=== PATIENT | male | born 1955 | race Caucasian/White ===

== ENCOUNTER 2017-05-20 05:17 | Inpatient (IN) | payer BC ==
[2017-05-20] VITALS (23 sets, daily range): BP systolic 108–140; BP diastolic 60–79; PULSE 55–82; RESP 11–20; Ht 182.9 cm; Wt 104.9 kg
[~2017-05-20] VITALS: Ht 182.9 cm; Wt 104.9 kg
[~2017-05-20 05:17] MED LIST: CEFAZOLIN 2 GM/50 ML (PMX) 50 ML IVPB ONE; LACTATED RINGER'S 1,000 ML IV* SCH
[2017-05-20] MEDS ORDERED: LISI10TA2 PO (05:55)
[2017-05-20] MEDS ORDERED: LACTATED RINGER'S 1,000 ML IV* SCH (06:30)
[2017-05-20] MEDS ORDERED: GELATIN SIZE 100 SPONGE ONE (06:39)
[2017-05-20] MEDS ORDERED: POLYMYXIN/BACITRACIN 1L IRRIG ONE (06:39)
[2017-05-20] MEDS ORDERED: THROMBIN 5000 UNIT VIAL ONE (06:39)
[2017-05-20] MEDS ORDERED: BUPIVACAINE 0.25% (MPF) 10 ML 10 ML VIAL ONE (06:39)
--- NOTE | 2017-05-20 06:47 | HPN ---
Date/Time of Note Date/Time of Note DATE: 05/20/17 TIME: 06:46 Interval H&P Admission Note Pt. seen H&P reviewed: No system changes CHRISTOPHER WATKINS MD May 20, 2017 06:46
[2017-05-20] MEDS ORDERED: NEOSTIGMINE 3 MG/3 ML SYRINGE ONE ×2 (06:49→07:40)
[2017-05-20] MEDS ORDERED: ROCURONIUM 50 MG INJ ONE ×2 (06:49→07:40)
[2017-05-20] MEDS ORDERED: MEPERIDINE 100 MG INJ ONE (06:49)
[2017-05-20] MEDS ORDERED: LIDOCAINE 2% (SDV) 5 ML INJ ONE (06:49)
[2017-05-20] MEDS ORDERED: PROPOFOL 20 ML ONE (06:49)
[2017-05-20] MEDS ORDERED: GLYCOPYRROLATE 0.4 MG INJ ONE ×3 (06:49→07:40)
[2017-05-20] MEDS ORDERED: SUCCINYLCHOLINE CHLORIDE 100 MG/5 ML SYG IV ONE (06:49)
[2017-05-20] MEDS ORDERED: LABETALOL HCL 20MG INJ ONE (07:30)
--- NOTE | 2017-05-20 07:49 | RADRPT ---
PROCEDURE: XR Lumbar Spine one view. CLINICAL INDICATION: Low back pain. Intraoperative. TECHNIQUE: Prone portable cross-table lateral. COMPARISON: No prior studies are available for comparison. FINDINGS: For the purposes of this report, the last apparent true disc level is considered to be L5-S1. Based on this, the posterior surgical instruments are present overlying the L2, L3, and L4 spinous proces ses. IMPRESSION: 1. Intraoperative imaging as described above. Call report: A call report of the findings was made to Dr. Ingram on 05/20/2017 at 0749 hours. RPTAT: QQ .Tone Jaramillo MD, MD Date Time Electronically viewed and signed by .Tone Jaramillo MD, MD on 05/20/2017 07:49 .R/
--- NOTE | 2017-05-20 07:57 | RADRPT ---
PROCEDURE: XR Lumbar Spine one view. CLINICAL INDICATION: Low back pain. Intraoperative. TECHNIQUE: Prone portable cross-table lateral. COMPARISON: No prior studies are available for comparison. FINDINGS: For the purposes of this report, the last apparent true disc level is considered to be L5-S1. Based on this, the posterior needle markers are present overlying the L2-3 disk level and the L5 spinous process level. IMPRESSION: 1. Intraoperative imaging as described above. RPTAT: QQ .Tone Jaramillo MD, Date Time Electronically viewed and signed by .Tone Jaramillo MD, on 05/20/2017 07:57 .R/
[2017-05-20] MEDS ORDERED: ONDANSETRON 4 MG INJ ONE (09:07)
[2017-05-20] MEDS ORDERED: hydrALAzine 20 MG INJ IV PRN (09:30)
[2017-05-20] MEDS ORDERED: FENTAnyl 50 MCG/ML VIAL IV PRN ×3 (09:30)
[2017-05-20] MEDS ORDERED: ONDANSETRON 4 MG INJ IV PRN ×2 (09:30→10:00)
[2017-05-20] MEDS ORDERED: MEPERIDINE 25 MG INJ IV PRN (09:30)
[2017-05-20] MEDS ORDERED: LABETALOL HCL 20MG INJ IV PRN (09:30)
[2017-05-20] MEDS ORDERED: OXYCODONE/ACETAMINOPHEN (5/325) TAB PO PRN ×2 (09:30)
[2017-05-20] MEDS ORDERED: MIDAZOLAM 1 MG/ML 2 ML INJ IV PRN (09:30)
[2017-05-20] MEDS ORDERED: EPHEDrine SULFATE 50 MG/5 ML SYG IV PRN (09:30)
[2017-05-20] MEDS ORDERED: morphine (1 MG/ML) 10ML SYRINGE IV PRN ×3 (09:30)
[2017-05-20] MEDS ORDERED: DIPHENHYDRAMINE 50 MG INJ IV PRN (09:30)
[2017-05-20] MEDS ORDERED: METOCLOPRAMIDE 10 MG INJ IV PRN (09:30)
[2017-05-20] MEDS ORDERED: HYDROmorphONE (0.2 MG/ML) 10ML SYG IV PRN ×3 (09:30)
--- NOTE | 2017-05-20 09:56 | OPR ---
Date/Time of Note Date/Time of Note DATE: 05/20/17 TIME: 09:53 Operative Report Preoperative Diagnosis Lumbar spinal stenosis at L2, L3 and L4 Postoperative Diagnosis Same Operation/Procedure Performed Central decompressive laminectomy at L2 Central decompressive laminectomy at L3 Central decompressive laminectomy at L4 Medial facetectomy and foraminotomy L2-3 L3-4 L4-5 bilaterally Cosmetic wound closure (14 cm) Lateral localizing lumbar radiographs (2) Intraoperative nerve monitoring (3 hours) Surgeon: CHRISTOPHER WATKINS MD library serials assistant: KSENIA LUNA Anesthesia: general Estimated Blood Loss: 100 - 150 ml's Specimens Spinous process of L2-L3 and L4 Grafts/Implants None Complications: None CHRISTOPHER WATKINS MD May 20, 2017 09:56
[2017-05-20] MEDS ORDERED: TRIMETHOBENZAMIDE 100 MG/ML VIAL IM PRN (10:00)
[2017-05-20] MEDS ORDERED: DIPHENHYDRAMINE 50 MG CAP PO PRN (10:00)
[2017-05-20] MEDS ORDERED: DIAZEPAM 5 MG/ML SYG IM PRN (10:00)
[2017-05-20] MEDS ORDERED: AL HYDROX/MG HYDROX/SIMETH 30 ML CUP PO PRN (10:00)
[2017-05-20] MEDS ORDERED: ACETAMINOPHEN 325 MG TAB PO PRN (10:00)
[2017-05-20] MEDS ORDERED: HYDROCODONE/APAP (5/325) TAB PO PRN (10:00)
[2017-05-20] MEDS ORDERED: ZOLPIDEM 5 MG TAB PO PRN (10:00)
[2017-05-20] MEDS ORDERED: BETHANECHOL 25 MG TAB PO PRN (10:00)
[2017-05-20] MEDS ORDERED: DIAZEPAM 5 MG TAB PO PRN (10:00)
[2017-05-20] MEDS ORDERED: NACL 0.9% 3 ML SYG IV SCH (10:00)
[2017-05-20] MEDS ORDERED: PROCHLORPERAZINE 10 MG TAB PO PRN (10:00)
[2017-05-20] MEDS ORDERED: NALOXONE (0.4 MG/ML) INJ IV PRN (10:00)
[2017-05-20] MEDS ORDERED: CEPASTAT LOZENGE MT PRN (10:00)
[2017-05-20] MEDS: HYDROmorphONE 0.2 MG/ML PCA IV SCH ×2 (10:12→19:02)
[2017-05-20] MEDS: CEFAZOLIN 1 GM/50 ML (PMX) 50 ML IVPB SCH ×2 (13:12→18:15)
[2017-05-20] MEDS: DEXTROSE 5%-0.45% NACL 1,000 ML IV SCH ×2 (13:12→20:15)
--- NOTE | 2017-05-20 16:29 | CONS ---
Date/Time of Note Date/Time of Note DATE: 05/20/17 TIME: 16:20 Assessment/Plan Assessment/Plan Additional Assessment/Plan will foloow with you ---thank you gold Consultation Date/Type/Reason Admit Date/Time May 20, 2017 at 05:17 Date of Consultation: May 20, 2017 Type of Consultation: internal medeicine Reason for Consultation medical f/u post-op Referring Provider: CHRISTOPHER WATKINS MD Hx of Present Illness post-op lumbar spine surgery for lumbar stenosis. no specific complaints other than prior back pain- significant past medical history surgey for removal of a melanoma and treatment for hypertension Social History Smoking Status: Never smoker Exam/Review of Systems Vital Signs Vitals Vital Signs Date Time Temp Pulse Resp B/P Pulse Ox O2 Delivery O2 Flow Rate FiO2 05/20/17 13:00 20 05/20/17 11:06 97.6 59 126/77 93 05/20/17 10:45 Nasal Cannula 05/20/17 10:23 2.0 Exam Constitutional: alert, oriented, well developed Psych: nl mood/affect, no complaints Head: atraumatic Eyes: nl conjunctiva ENMT: nl external ears & nose Neck: supple Respiratory: clear to auscultation Cardiovascular: regular rate and rhythm Gastrointestinal: soft Results stable post op back surgery out of bed today with pt Medications Medications Current Medications Lactated Ringer's 1,000 ml @ 0 mls/hr Q0M IV* Last administered on 05/20/17 06:46; Admin Dose 30 MLS/HR; Start 05/20/17 at 05:00; Stop 05/20/17 at 19:00 Lactated Ringer's 1,000 ml @ 20 mls/hr Q24H IV* Last administered on 06:46; Admin Dose 20 MLS/HR; Start 05/20/17 at 06:30; Stop 05/20/17 at 19: 00 Dextrose/Sodium Chloride (D5-1/2ns) 1,000 ml @ 100 mls/hr Q10H IV Last administered on 05/20/17 13:12; Admin Dose 100 MLS/HR; Start 05/20/17 at 09:49 Acetaminophen/ Hydrocodone Bitart ([place] (5/325)) 1 tab Q4H PRN PO PAIN LEVEL 1 -5; Start 05/20/17 at 10:00; Status Future Hold Acetaminophen/ Hydrocodone Bitart 2 tab 2 tab Q4H PRN PO PAIN LEVEL 6-10; Start 05/20/17 at 10:00; Status Future Hold Cefazolin Sodium (Ancef 1 Gm/50 ml (Pmx)) 50 ml @ 100 mls/hr Q6 IVPB Last administered on 05/20/17t 13:12; Admin Dose 100 MLS/HR; Start 05/20/17 at 12:00 ; Stop 05/21/17 at 06:29 Zolpidem Tartrate (Ambien) 5 mg HS PRN PO INSOMNIA; Start 05/20/17 at 10:00 Prochlorperazine (Compazine) 10 mg Q4H PRN PO NAUSEA AND/OR VOMITING; Start 08/27 at 10:00 Trimethobenzamide HCl (Tigan) 200 mg Q4H PRN IM NAUSEA AND/OR VOMITING; Start 05/20/17 at 10:00 Ondansetron HCl (Zofran Inj) 4 mg Q6H PRN IV NAUSEA AND/OR VOMITING; Start 08/27 at 10:00 Al Hydrox/Mg Hydrox/Simethicone (Mag-Al Plus) 15 ml Q4H PRN PO CONSTIPATION; Start 05/20/17 at 10:00 Docusate Sodium (Colace) 100 mg BID PO ; Start 05/21/17 at 09:00 Acetaminophen (Tylenol Tab) 650 mg Q4H PRN PO TEMP GREATER THAN 101F OR JUAN; Start 05/20/17 at 10:00 Ascorbic Acid (Vitamin C) 1,000 mg BID PO ; Start 05/21/17 at 09:00 Ferrous Sulfate (Ferrous Sulfate (Ec)) 325 mg TID PO ; Start 05/21/17 at 09:00 Ranitidine HCl (Zantac) 150 mg BID PO ; Start 05/20/17 at 21:00 Diazepam (Valium) 5 mg Q4H PRN PO MUSCLE SPASMS; Start 05/20/17 at 10:00 Diazepam (Valium) 5 mg Q4H PRN IM MUSCLE SPASMS; Start 05/20/17 at 10:00 Phenol (Cepastat Lozenge) 1 lozenge PRN PRN MT SORE THROAT; Start 7/10/17 at 10:00 Bethanechol Chloride (Urecholine) 25 mg PRN PRN PO UNABLE TO VOID; Start at 10:00 Diphenhydramine HCl (Benadryl) 50 mg Q6H PRN PO PRURITUS; Start 05/20/17 at 10: 00 Hydromorphone HCl (Dilaudid VEGETABLE FARMING SUPERVISOR) Q4PCA IV Last administered on 05/20/17t 10:12 ; Admin Dose 6 MG; Start 05/20/17 at 10:00 Naloxone HCl (Narcan) 0.2 mg Q2M PRN IV RR 8 BREATHS/MIN OR LESS; Start at 10:00 BETTY DUKE MD May 20, 2017 16:29
[2017-05-20] MEDS: RANITIDINE 150 MG TAB PO SCH (20:15)
[2017-05-21] MEDS: CEFAZOLIN 1 GM/50 ML (PMX) 50 ML IVPB SCH ×2 (00:17→05:19)
[2017-05-21 00:35] VITALS: BP 116/56; RESP 20
[2017-05-21 05:20] LABS: HEMATOCRIT 39.1 % (42.0-52.0); HEMOGLOBIN 12.5 g/dl (14.0-18.0)
[2017-05-21] MEDS: DEXTROSE 5%-0.45% NACL 1,000 ML IV SCH ×2 (05:20→15:49)
[2017-05-21 05:32] LABS: CALCIUM 8.6 mg/dl (8.4-10.2); CREATININE 0.85 mg/dl (0.61-1.24); POTASSIUM 4.7 mmol/L (3.5-5.1)
--- NOTE | 2017-05-21 07:10 | PN ---
Date/Time of Note Date/Time of Note DATE: 05/21/17 TIME: 07:09 Assessment/Plan Lines/Catheters IV Catheter Type (from Nrs): Saline Lock Berger in Place (from Nrs): Yes Subjective 24 Hr Interval Summary The patient is postop day #1 following a 3 level decompressive laminectomy at L2 -L3 and L4. He is resting comfortably in bed. Neurovascular structures are intact distally. A.m. lab work is unremarkable. His Hemovac had 250 cc of output since surgery and was left in place. I will check the output at noon. He will be mobilized as tolerated by physical therapy. Exam/Review of Systems Vital Signs Vitals Vital Signs Date Time Temp Pulse Resp B/P Pulse Ox O2 Delivery O2 Flow Rate FiO2 05/21/17 05:00 18 05/21/17 00:35 98.9 72 116/56 99 05/20/17 14:20 Nasal Cannula 2.0 Intake and Output 05/20/17 05/20/17 05/21/17 15:00 23:00 07:00 Intake Total 3450 ml 1070 ml 800 ml Output Total 495 ml 600 ml 2000 ml Balance 2955 ml 470 ml -1200 ml Results Result Diagram: 05/21/17 0428 05/21/17 0428 CHRISTOPHER WATKINS MD May 21, 2017 07:10
[2017-05-21 08:00] VITALS: BP 126/62; RESP 18
[2017-05-21] MEDS ORDERED: BETHANECHOL 25 MG TAB PO PRN (08:00)
--- NOTE | 2017-05-21 08:16 | CONS ---
Date/Time of Note Date/Time of Note DATE: 05/21/17 TIME: 08:09 Assessment/Plan Assessment/Plan Chief Complaint/Hosp Course post-op lumbar spine surgery for lumbar stenosis. Problems: Additional Assessment/Plan medically stabcontinue current medications.dr tori adrian current complaintsle Consultation Date/Type/Reason Admit Date/Time May 20, 2017 at 05:17 Initial Consult Date 05/20/17 Type of Consultation: internal medeicine Reason for Consultation medical evaluation and manaqgent nguyễn medical problems Referring Provider: CHRISTOPHER WATKINS MD 24 HR Interval Summary Constitutional: other (complinin of right hand tingling and numbness in ulnar distribution--new onset) Detailed Summary Eyes: no complaints ENT: no complaints Gastrointestinal: no complaints Genitourinary: no complaints Musculoskeletal: back pain Skin: no complaints Exam/Review of Systems Vital Signs Vitals Vital Signs Date Time Temp Pulse Resp B/P Pulse Ox O2 Delivery O2 Flow Rate FiO2 05/21/17 05:00 18 05/21/17 00:35 98.9 72 116/56 99 05/20/17 14:20 Nasal Cannula 2.0 Intake and Output 05/20/17 05/20/17 05/21/17 15:00 23:00 07:00 Intake Total 3450 ml 1070 ml 800 ml Output Total 495 ml 600 ml 2000 ml Balance 2955 ml 470 ml -1200 ml Exam Constitutional: alert Respiratory: clear to auscultation Cardiovascular: regular rate and rhythm Gastrointestinal: soft Neurological: numbness (right h) Results Result Diagram: 05/21/17 0428 05/21/17 0428 Results 24 hrs Laboratory Tests Test 05/21/17 04:28 Hemoglobin 12.5 L Hematocrit 39.1 L Sodium Level 139 Potassium Level 4.7 Chloride Level 101 Carbon Dioxide Level 32 H Anion Gap 11 Blood Urea Nitrogen 11 Creatinine 0.85 Glucose Level 123 Calcium Level 8.6 Medications Medications Current Medications Dextrose/Sodium Chloride (D5-1/2ns) 1,000 ml @ 100 mls/hr Q10H IV Last administered on 05/21/17t 05:20; Admin Dose 100 MLS/HR; Start 05/20/17 at 09:49 Acetaminophen/ Hydrocodone Bitart ([place] (5/325)) 1 tab Q4H PRN PO PAIN LEVEL 1 -5; Start 05/20/17 at 10:00; Status Future Hold Acetaminophen/ Hydrocodone Bitart ([place] (5/325)) 2 tab Q4H PRN PO PAIN LEVEL 6 -10; Start 05/20/17 at 10:00; Status Future Hold Zolpidem Tartrate (Ambien) 5 mg HS PRN PO INSOMNIA; Start 05/20/17 at 10:00 Prochlorperazine (Compazine) 10 mg Q4H PRN PO NAUSEA AND/OR VOMITING; Start 08/27 at 10:00 Trimethobenzamide HCl (Tigan) 200 mg Q4H PRN IM NAUSEA AND/OR VOMITING; Start 05/20/17 at 10:00 Ondansetron HCl (Zofran Inj) 4 mg Q6H PRN IV NAUSEA AND/OR VOMITING; Start 08/27 at 10:00 Al Hydrox/Mg Hydrox/Simethicone (Mag-Al Plus) 15 ml Q4H PRN PO CONSTIPATION; Start 05/20/17 at 10:00 Docusate Sodium (Colace) 100 mg BID PO ; Start 05/21/17 at 09:00 Acetaminophen (Tylenol Tab) 650 mg Q4H PRN PO TEMP GREATER THAN 101F OR JUAN; Start 05/20/17 at 10:00 Ascorbic Acid (Vitamin C) 1,000 mg BID PO ; Start 05/21/17 at 09:00 Ferrous Sulfate (Ferrous Sulfate (Ec)) 325 mg TID PO ; Start 05/21/17 at 09:00 Ranitidine HCl (Zantac) 150 mg BID PO Last administered on 05/20/17 20:15; Admin Dose 150 MG; Start 05/20/17 at 21:00 Diazepam (Valium) 5 mg Q4H PRN PO MUSCLE SPASMS; Start 05/20/17 at 10:00 Diazepam (Valium) 5 mg Q4H PRN IM MUSCLE SPASMS; Start 05/20/17 at 10:00 Phenol (Cepastat Lozenge) 1 lozenge PRN PRN MT SORE THROAT Last administered on 05/20/17 20:15; Admin Dose 1 LOZENGE; Start 05/20/17 at 10:00 Bethanechol Chloride (Urecholine) 25 mg PRN PRN PO UNABLE TO VOID; Start at 10:00 Diphenhydramine HCl (Benadryl) 50 mg Q6H PRN PO PRURITUS; Start 05/20/17 at 10: 00 Hydromorphone HCl (Dilaudid PERFORMANCE TEST ENGINEER) Q4PCA IV Last administered on 05/20/17t 19:02 ; Admin Dose 6 MG; Start 05/20/17 at 10:00 Naloxone HCl (Narcan) 0.2 mg Q2M PRN IV RR 8 BREATHS/MIN OR LESS; Start at 10:00 Lisinopril (Zestril) 10 mg DAILY PO ; Start 05/21/17 at 09:00 Bethanechol Chloride (Urecholine) 25 mg PRN PRN PO UNABLE TO VOID; Start at 08:00 BETTY DUKE MD May 21, 2017 08:15
[2017-05-21] MEDS: FERROUS SULFATE (EC) 325 MG TAB PO SCH ×3 (09:05→20:30)
[2017-05-21] MEDS: ASCORBIC ACID 500 MG TAB PO SCH ×2 (09:05→20:29)
[2017-05-21] MEDS: DOCUSATE SODIUM 100 MG CAP PO SCH ×2 (09:06→20:30)
[2017-05-21] MEDS: LISINOPRIL 10 MG TAB PO SCH (09:06)
[2017-05-21] MEDS: RANITIDINE 150 MG TAB PO SCH ×2 (09:07→20:30)
[2017-05-21] MEDS: HYDROCODONE/APAP (5/325) TAB PO PRN ×4 (09:21→21:18)
[2017-05-21 13:48] LABS: ADD UMIC NO; UR ASCORBIC ACID NEGATIVE (NEGATIVE); UR BILIRUBIN (Dip) NEGATIVE (NEGATIVE); UR BLOOD (Dip) NEGATIVE (NEGATIVE); UR CLARITY CLEAR (CLEAR); UR COLOR YELLOW (YELLOW); UR GLUCOSE (Dip) NEGATIVE (NEGATIVE); UR KETONES (Dip) NEGATIVE (NEGATIVE); UR LEUKOCYTE ESTERASE (Dip) NEGATIVE Leu/ul (NEGATIVE); UR NITRITE (Dip) NEGATIVE (NEGATIVE); UR SPECIFIC GRAVITY (Dip) 1.015 (1.003-1.030); UR TOTAL PROTEIN (Dip) NEGATIVE (NEGATIVE); UR UROBILINOGEN (Dip) NEGATIVE (NEGATIVE)
[2017-05-21 19:40] VITALS: BP 100/57; RESP 20
[2017-05-22] MEDS: DEXTROSE 5%-0.45% NACL 1,000 ML IV SCH (01:49)
--- NOTE | 2017-05-22 07:40 | PN ---
Date/Time of Note Date/Time of Note DATE: 05/22/17 TIME: 07:38 Assessment/Plan Lines/Catheters IV Catheter Type (from Nrsg): Saline Lock Berger in Place (from Nrsg): No Subjective 24 Hr Interval Summary The patient is postop day #2 following a multilevel decompressive laminectomy. He is resting comfortably in bed. Neurovascular structures are intact distally. I anticipate he can be discharged later today upon clearance from physical therapy. He has been given strict discharge precautions and instructions as well as follow-up arrangements. Exam/Review of Systems Vital Signs Vitals Vital Signs Date Time Temp Pulse Resp B/P Pulse Ox O2 Delivery O2 Flow Rate FiO2 05/21/17 19:40 99.1 85 20 100/57 94 05/20/17 14:20 Nasal Cannula 2.0 Intake and Output 05/21/17 05/21/17 05/22/17 15:00 23:00 07:00 Intake Total 500 ml 700 ml 620 ml Output Total 30 ml 750 ml 900 ml Balance 470 ml -50 ml -280 ml Results Result Diagram: 05/21/17 0428 05/21/17 0428 CHRISTOPHER WATKINS MD May 22, 2017 07:40
[2017-05-22 08:00] VITALS: BP 112/58; RESP 18
--- NOTE | 2017-05-22 08:02 | CONS ---
Date/Time of Note Date/Time of Note DATE: 05/22/17 TIME: 07:59 Assessment/Plan Assessment/Plan Chief Complaint/Hosp Course post-op lumbar spine surgery for lumbar stenosis. Problems: Additional Assessment/Plan plan per medically stable at this [id number]---rtils you [facility] Consultation Date/Type/Reason Admit Date/Time May 20, 2017 at 05:17 Initial Consult Date 05/20/17 Type of Consultation: internal medeicine Referring Provider: CHRISTOPHER WATKINS MD 24 HR Interval Summary Constitutional: no complaints Exam/Review of Systems Vital Signs Vitals Vital Signs Date Time Temp Pulse Resp B/P Pulse Ox O2 Delivery O2 Flow Rate FiO2 05/21/17 19:40 99.1 85 20 100/57 94 05/20/17 14:20 Nasal Cannula 2.0 Intake and Output 05/21/17 05/21/17 05/22/17 15:00 23:00 07:00 Intake Total 500 ml 700 ml 620 ml Output Total 30 ml 750 ml 900 ml Balance 470 ml -50 ml -280 ml Exam Constitutional: alert Psych: no complaints ENMT: nl external ears & nose Respiratory: clear to auscultation Cardiovascular: regular rate and rhythm Gastrointestinal: soft Results Result Diagram: 05/21/17 0428 05/21/17 0428 Results 24 hrs Laboratory Tests Test 05/21/17 09:11 Urine Color YELLOW Urine Clarity CLEAR Urine pH 5.0 Urine Specific [place] 1.015 Urine Ketones NEGATIVE Urine Nitrite NEGATIVE Urine Bilirubin NEGATIVE Urine Urobilinogen NEGATIVE Urine Leukocyte Esterase NEGATIVE Urine Hemoglobin NEGATIVE Urine Glucose NEGATIVE Urine Total Protein NEGATIVE Medications Medications Current Medications Dextrose/Sodium Chloride (D5-1/2ns) 1,000 ml @ 100 mls/hr Q10H IV Last administered on 05/21/17 05:20; Admin Dose 100 MLS/HR; Start 05/20/17 at 09:49 Acetaminophen/ Hydrocodone Bitart ([place] (5/325)) 1 tab Q4H PRN PO PAIN LEVEL 1 -5; Start 05/20/17 at 10:00; Status Future hold Acetaminophen/ Hydrocodone Bitart ([place] (5/325)) 2 tab Q4H PRN PO PAIN LEVEL 6 -10 Last administered on 05/21/17 21:18; Admin Dose 2 TAB; Start 05/20/17 at 10 :00; Status Future hold Zolpidem Tartrate (Ambien) 5 mg HS PRN PO INSOMNIA; Start 05/20/17 at 10:00 Prochlorperazine (Compazine) 10 mg Q4H PRN PO NAUSEA AND/OR VOMITING; Start 08/27 at 10:00 Trimethobenzamide HCl (Tigan) 200 mg Q4H PRN IM NAUSEA AND/OR VOMITING; Start 05/20/17 at 10:00 Ondansetron HCl (Zofran Inj) 4 mg Q6H PRN IV NAUSEA AND/OR VOMITING; Start 08/27 at 10:00 Al Hydrox/Mg Hydrox/Simethicone (Mag-Al Plus) 15 ml Q4H PRN PO CONSTIPATION; Start 05/20/17 at 10:00 Docusate Sodium (Colace) 100 mg BID PO Last administered on 05/21/17 20:30; Admin Dose 100 MG; Start 05/21/17 at 09:00 Acetaminophen (Tylenol Tab) 650 mg Q4H PRN PO TEMP GREATER THAN 101F OR JUAN; Start 05/20/17 at 10:00 Ascorbic Acid (Vitamin C) 1,000 mg BID PO Last administered on 05/21/17 20:29 ; Admin Dose 1,000 MG; Start 05/21/17 at 09:00 Ferrous Sulfate (Ferrous Sulfate (Ec)) 325 mg TID PO Last administered on 20:30; Admin Dose 325 MG; Start 05/21/17 at 09:00 Ranitidine HCl (Zantac) 150 mg BID PO Last administered on 05/21/17 20:30; Admin Dose 150 MG; Start 05/20/17 at 21:00 Diazepam (Valium) 5 mg Q4H PRN PO MUSCLE SPASMS; Start 05/20/17 at 10:00 Diazepam (Valium) 5 mg Q4H PRN IM MUSCLE SPASMS; Start 05/20/17 at 10:00 Phenol (Cepastat Lozenge) 1 lozenge PRN PRN MT SORE THROAT Last administered on 05/20/17 20:15; Admin Dose 1 LOZENGE; Start 05/20/17 at 10:00 Bethanechol Chloride (Urecholine) 25 mg PRN PRN PO UNABLE TO VOID Last administered on 05/21/17 09:08; Admin Dose 25 MG; Start 05/20/17 at 10:00 Diphenhydramine HCl (Benadryl) 50 mg Q6H PRN PO PRURITUS; Start 05/20/17 at 10: 00 Hydromorphone HCl (Dilaudid CANDY ROLLING MACHINE OPERATOR) Q4PCA IV Last administered on 05/20/17 19:02 ; Admin Dose 6 MG; Start 05/20/17 at 10:00 Naloxone HCl (Narcan) 0.2 mg Q2M PRN IV RR 8 BREATHS/MIN OR LESS; Start at 10:00 Lisinopril (Zestril) 10 mg DAILY PO Last administered on 05/21/17 09:06; Admin Dose 10 MG; Start 05/21/17 at 09:00 Bethanechol Chloride (Urecholine) 25 mg PRN PRN PO UNABLE TO VOID; Start at 08:00 BETTY DUKE MD May 22, 2017 08:02
[2017-05-22] MEDS: FERROUS SULFATE (EC) 325 MG TAB PO SCH (08:26)
[2017-05-22] MEDS: RANITIDINE 150 MG TAB PO SCH (08:26)
[2017-05-22] MEDS: HYDROCODONE/APAP (5/325) TAB PO PRN (08:26)
[2017-05-22] MEDS: DOCUSATE SODIUM 100 MG CAP PO SCH (08:26)
[2017-05-22] MEDS: ASCORBIC ACID 500 MG TAB PO SCH (08:26)
[2017-05-22] MEDS: LISINOPRIL 10 MG TAB PO SCH (09:00)
--- NOTE | 2017-05-27 09:22 | DS ---
Date/Time of Note Date/Time of Note DATE: 05/27/17 TIME: 09:20 Discharge Summary Admission/Discharge Info Admit Date/Time May 20, 2017 at 05:17 Discharge Date/Time May 22, 2017 at 12:10 Discharge Diagnosis Lumbar spinal stenosis at L2, L3 and L4 Patient Condition: Fair Hospital Course Patient did well postoperatively. His diet and activity were advanced as tolerated. Pain is well-controlled prior to his discharge. He was discharged home in good condition on postop day #2. Home Meds Reported Medications Lisinopril* (Lisinopril*) 10 Mg Tablet, 10 MG PO DAILY, #30 TAB 05/20/17 Follow-up Plan Follow-up with Dr. Ingram in 1-2 weeks. Primary Care Provider KSENIA Merino May 27, 2017 09:21
--- NOTE | 2017-05-27 12:18 | OPR ---
DATE OF OPERATION: 05/20/2017 SURGEON: Javi Ingram MD. REGIONAL PROGRAM MANAGER: Mindy Reyes PA-C. ANESTHESIOLOGIST: Alf Renteria MD. PREOPERATIVE DIAGNOSIS: Lumbar spinal stenosis at L2, L3 and L4. OPERATION PERFORMED: 1. Central decompressive laminectomy at L2. 2. Central decompressive laminectomy at L3. 3. Central decompressive laminectomy at L4. 4. Medial facetectomy and foraminotomy L2-3, L3-4, L4-5 bilaterally. 5. Cosmetic wound closure (14 cm). 6. Lateral localizing lumbar radiographs (2). 7. Intraoperative nerve monitoring (3 hours). ANESTHESIA: General endotracheal. ESTIMATED BLOOD LOSS: 150 mL - none replaced. DRAINS: Two medium Hemovac drains employed. COMPLICATIONS: No complications. PERTINENT HISTORY: The patient is a 62-year-old male with persistent back and lower extremity complaints which have been unrelieved by conservative management. He is undergone a number of diagnostic studies, including an MRI of the lumbar spine which demonstrated lumbar spinal stenosis at L2, L3, and L4. Treatment options were discussed with the patient, who elected to do surgery. OPERATIVE FINDINGS AT SURGERY: A moderately severe central stenosis at L2, L3, and L4 was confirmed. Baseline intraoperative nerve monitoring revealed a decrease in the L4 potentials bilaterally of 60 percent. The L5 potentials bilaterally of 70 percent and the S1 potentials bilaterally of 30 percent. These returned to normal at the completion of the surgery. OPERATIVE PROCEDURE: With the patient in a supine position, after satisfactory induction of general endotracheal anesthesia by Dr. Susan Renteria, the patient was turned to the prone kneeling position on to the Hasting's frame. All pressure points were carefully padded, the back was prepped and draped in the usual sterile fashion. Athrombin pumps were applied to the legs above the knees for venous stasis during and after the procedure. An indwelling Berger catheter was also placed preoperative to obtain sterile bladder drainage during and after the procedure. Two spinal needles were placed next about the L2 and L5 spinous processes, lateral radiograph was taken which confirmed anatomical localization. A 14 cm incision was then carried out in the midline from L2 to L5 through the skin and subcutaneous tissues, to the deep fascia. After the skin was infiltrated with 0.25 percent Marcaine without epinephrine for postoperative analgesia. Superficial retractors were placed and hemostasis was secured with electrocautery. Throughout the procedure copious amounts of antibacterial irrigating solution used to periodically irrigate the wound. The fascia was then incised in the midline with a hot knife and a bilateral sub-periosteal dissection carried out at L2, L3 and L4. Deep retractors were placed and deep hemostasis secured with electrocautery. A second intraoperative radiograph was taken with Kylie clamps placed and was felt to be L2, L3 and L4 and this was confirmed on the second x-ray. A central decompressive line next made at L2, L3 and L4 was then carried out using a Ben right angle bone rongeur, a Leksell rongeur, Kerrison punch and curettes. Ligamentum flavum was excised with sharp dissection. The operating microscope was then moved into place. A medial facetectomy and foraminotomy was accomplished at L2-3, L3-4 and L4-5 bilaterally using a small hand osteotome and mallet, Kerrison punch and curets. The anesthesiologist was asked to perform a Valsalva maneuver at 40 mmHg and no spinal fluid leaks were noted. The wound was then closed in layers over two medium Hemovac drains, one below the fascia and one above the fascia using #1 Stratafix sutures on the deep musculature and deep fascia back. #2-0 Stratafix sutures and a #4-0 Vicryl subcuticular cosmetic closing suture on the skin. Dermabond, sterile press dressings were applied. The patient tolerated the procedure well, and was then turned to supine position onto his bed, and extubated by Dr. Susan Renteria. He was transported to the Recovery room in satisfactory condition. At the conclusion of the procedure, the sponge, instruments and needle counts were all correct. During this procedure, my insurance assistant was used to irrigate the wound, suction the wound, and retract neural elements as needed for visualization of the procedures. The use of functions cannot be performed by unlicensed personnel. Throughout the procedure the neural monitoring was carried out by [employer] including EMG, SSVP and MEP monitoring of the L3, L4 L5 and S1 nerve roots bilaterally, along with spinal cord potentials, these were interpreted by a neurologist employed by [employer]. Dictated By: Javi Ingram MD /[email or web address] /Document#: [id number] CC: Modesto Arana MD; Javi Ingram MD;*EndCC*
== END 2017-05-22 12:10 | disposition home or self-care (01) | DRG 517 ==
LOC: REC 05:17 → MS1 10:40
PROVIDERS: ADMIT Orthopaedic Surgery; ATTEND Orthopaedic Surgery
PROC: 01NB0ZZ Release Lumbar Nerve, Open Approach (ICD-10-PCS; principal; 2017-05-20 07:00)
DX: M48.06 Spinal stenosis, lumbar region (principal)
CPT/HCPCS: 72020; 80048; 81003; 85014; 85018; 86850; 86900; 86901; 86920; 87086; 97116; 97162; 97530; J0690; J1170; J2175; J2405; J2710; J3010; J7042; J7120; J7999

== ENCOUNTER 2019-08-21 08:49 | Outpatient (CLI) | payer BC ==
[~2019-08-21 08:49] MED LIST changes: -CEFAZOLIN 2 GM/50 ML (PMX) 50 ML IVPB ONE; +DOCU-159 PO; -LACTATED RINGER'S 1,000 ML IV* SCH; +LISI10TA2 PO; +MULT-371 PO; +POLY17PO6 PO; +UDMOM PO
== END 2019-08-21 12:00 | disposition home or self-care (01) ==
LOC: RAD 08:49 → EEVIPCON 09:00 → RAD 12:00
PROVIDERS: ATTEND Internal Medicine
DX: R68.81 Early satiety (principal)
CPT/HCPCS: 74230; 74240